=== PATIENT | female | born 1945 | race Caucasian/White ===

== ENCOUNTER 2021-04-24 09:30 | Outpatient (REF) | payer MEDICARE, SELFPAY ==
--- NOTE | ~2021-04-24 | CT_ITS ---
EXAMINATION: CT CHEST, ABDOMEN AND PELVIS WITH IV CONTRAST CLINICAL INFORMATION: Ovarian cancer COMPARISON: None TECHNIQUE: Axial images through the chest, abdomen and pelvis following oral and 100 mL Omnipaque 300 intravenous contrast. Sagittal and coronal reconstructions on the technologist workstation were performed. Patient dose 2 0 3 mg/cm. This CT examination was performed using dose optimization techniques as appropriate, variously including the following: *Automated exposure control *Adjustment of mA and/or kV according to patient size (this includes techniques or standardized protocols for targeted exams where dose is matched to indication/reason for exam; i.e. extremities or head) *Use of iterative reconstruction technique FINDINGS: Chest: There is mild biapical pleural thickening. There is mild peripheral or subpleural parenchymal scarring in both upper lung adjacent to the major fissures, axial image 12 on the left and 15 on the right series 4. There is a 2 mm peripheral right upper lobe nodule axial image 12 series 4. There is a 2 mm peripheral left lower lobe nodule axial image 26 series 4. There is a 2 mm peripheral lingular nodule axial image 31 series 4. There is a 2 mm peripheral or subpleural left lower lobe nodule axial image 36 series 4. There is a right jugular port with tip projecting over the SVC. The mediastinum is normal. There is no pleural effusion or pleural thickening. No chest wall mass or enlarged axillary lymph nodes are seen. There are innumerable skin nodules or nevi /moles. There is scoliosis of the thoracic spine and degenerative changes. There is a severe T8 vertebral body compression fracture. There is pectus deformity of the chest. There is a focal. Cortical thickening or periosteal reaction questionable for trauma to the sternum. Abdomen and pelvis: No focal liver lesion is seen. The gallbladder has been removed. There is mild intra and extrahepatic biliary duct dilatation. Bile duct is dilated down to the head of the pancreas. Common bile left measures maximum 1.1 cm. This may be related to cholecystectomy. The pancreas is normal. The main pancreatic duct does not appear dilated. The spleen is normal. Adrenal glands are normal. There are bilateral renal cysts. Largest cyst measures 4 cm in the right kidney. No imaging follow-up is indicated. There is a 4 mm stone in the lower pole of the right kidney. No hydronephrosis is seen. There is question of wall thickening along the dome of the bladder. The uterus and ovaries have been removed. There is some soft tissue seen in the pelvis adjacent to the left side of the vaginal cuff extending toward the distal left sigmoid colon near the surgical anastomotic suture line for example axial image 4 series 4. There are postsurgical changes following resection of the right colon, transverse colon and proximal left colon. There is a surgical anastomosis of the small bowel to the large bowel in the left mid abdomen. There is also evidence of previous surgery to the distal sigmoid colon or upper rectum. There is stool the colon suggestive of constipation. Small and large bowel is otherwise unremarkable. There is abnormal wall thickening and low attenuation in the wall of the distal stomach. Neoplastic process and ulcer disease should be considered. The adjacent fat is normal. There is no abscess or free air. There is trace ascites or peritoneal thickening under both hemidiaphragms adjacent to the liver and wheezing. There is a soft tissue nodule in the left peritoneum lateral to the left psoas muscle. This measures 1.2 cm in AP and transverse dimension axial image 43 series 4. No hernia is seen. Vascular structures are normal. There is scoliosis and degenerative changes of the spine. There is a Schmorl's node versus mild compression fracture of the superior endplate of the L4 vertebral body. CT/CT abdomen pelvis w con IMPRESSION: Chest: Small pulmonary nodules or micronodules measuring 2 mm. Abdomen and pelvis: Question peritoneal disease adjacent to the left psoas muscle and in the pelvis adjacent to the left side of the vaginal cuff and surgical suture line of the sigmoid colon. Trace ascites versus peritoneal thickening under the bilateral hemidiaphragms adjacent to the liver and spleen. Question wall thickening of the dome of the bladder. Abnormal wall thickening of the distal stomach and low-attenuation. Neoplastic process and ulcer disease should be considered. Endoscopy should be considered. Postsurgical changes to the bowel. Question
== END 2021-04-24 09:31 | disposition home or self-care (01) ==
LOC: HO.CT 09:30
PROVIDERS: Visit Provider Internal Medicine Medical Oncology
DX: C56.9 Malignant neoplasm of unspecified ovary (principal)
CPT/HCPCS: 71260; 74177